=== PATIENT | male | born 1955 | race African-American/Black ===

== ENCOUNTER 2022-10-29 06:44 | Emergency (ER) | payer OTHER ==
[2022-10-29 07:01] VITALS: BP 136/79; PULSE 102; RESP 18; TEMP 98.8; BMI 33.4
[2022-10-29] MEDS ORDERED: ACETAMINOPHEN 1000 MG/100 ML BAG IVPB ONE (08:11)
[2022-10-29] MEDS ORDERED: morphine CARPU-JECT 2 MG/1 ML DISP.SYRIN IVPUSH ONE (08:28)
[2022-10-29] MEDS ORDERED: ACETAMINOPHEN INJECTION 100 ML IVPB ONE (09:01)
[2022-10-29 09:52] LABS: EPI CELLS 6 /uL (0-25.1); HYALINE CASTS 2 /uL (0-3.1); URINE APPEARANCE CLEAR; URINE BACTERIA 6 /uL (0-1359); URINE BILIRUBIN NEGATIVE (NEGATIVE); URINE COLOR YELLOW; URINE GLUCOSE (UA) 1+ (NEGATIVE); URINE KETONE TRACE (NEGATIVE); URINE LEUK ESTERASE NEGATIVE (NEGATIVE); URINE NITRITE NEGATIVE (NEGATIVE); URINE PROTEIN 1+ (NEGATIVE); URINE RBC 13 /uL (0-23.9); URINE UROBILINOGEN 0.2 mg/dL (0.2-1.0); URINE WBC 10 /uL (0-25.8)
[2022-10-29 10:20] LABS: HEMATOCRIT 43.4 % (35.4-49); HEMOGLOBIN 14.4 GM/dL (11.7-16.9); MCH 30.4 pg (25.7-33.7); MCHC 33.2 g/dl (32.0-35.9); MEAN CELL VOLUME 91.5 fl (80-96); MEAN PLT VOLUME 7.8 fl (7.5-11.1); PLATELET COUNT 367 10^3/uL (134-434); RBC 4.74 M/mm3 (4.00-5.60); RDW 13.6 % (11.9-15.9); WHITE BLOOD COUNT 24.3 K/mm3 (4.0-10.0)
[2022-10-29] MEDS ORDERED: SODIUM CHLORIDE 0.9% 500 ML INFUS.BAG IV ONE (10:32)
[2022-10-29 10:42] LABS: CALCIUM 9.4 mg/dL (8.5-10.1)
[2022-10-29 10:43] LABS: ALBUMIN 4.1 g/dl (3.4-5.0); BLOOD UREA NITROGEN 12.9 mg/dL (7-18)
[2022-10-29 10:46] LABS: CREATININE 1.3 mg/dL (0.55-1.3)
[2022-10-29 10:47] LABS: BILIRUBIN,TOTAL 0.8 mg/dL (0.2-1); TOT PROT 7.9 g/dl (6.4-8.2)
[2022-10-29 11:00] LABS: ANISOCYTOSIS 0; HELMET CELLS 0; HOWELL-JOLLY BODIES 0; MACROCYTOSIS 0; OVALOCYTE 0; ROULEAU 0; SICKELED CELLS 0; TARGET CELLS 0; TEAR DROP CELLS 0; TOXIC GRANULATION 0
== END 2022-10-29 13:32 | disposition home or self-care (01) ==
LOC: JER 06:44
PROC: 3E033GC Introduction of Other Therapeutic Substance into Peripheral Vein, Percutaneous Approach (ICD-10-PCS; principal; 2022-10-29)
DX: U07.1 COVID-19 (principal); N20.0 Calculus of kidney
CPT/HCPCS: 0241U-QW; 36415; 74176-TC; 80053; 81003; 85025; 87086; 96374; 96375; 99285-25

== ENCOUNTER 2023-06-23 15:41 | Inpatient (IN) | payer OTHER ==
[2023-06-23] MEDS ORDERED: LACTATED RINGERS SOLUTION 1000 ML INFUS.BAG IV ONE (18:41)
[2023-06-23 20:13] LABS: BASO % 0.8 % (0-2.0); EOS % 1.3 % (0-4.5); HEMATOCRIT 36.6 % (35.4-49); HEMOGLOBIN 12.1 GM/dL (11.7-16.9); LYMPH % 71.7 % (8-40); MCH 30.8 pg (25.7-33.7); MCHC 33.2 g/dl (32.0-35.9); MEAN CELL VOLUME 92.8 fl (80-96); MEAN PLT VOLUME 8.7 fl (7.5-11.1); MONO % 1.7 % (3.8-10.2); NEUT % 24.5 % (42.8-82.8); PLATELET COUNT 388 10^3/uL (134-434); RBC 3.94 M/mm3 (4.00-5.60); RDW 13.5 % (11.9-15.9); WHITE BLOOD COUNT 25.4 K/mm3 (4.0-10.0)
[2023-06-23 20:17] LABS: INR 0.97 (0.83-1.09); PROTHROMBIN TIME (PATIENT) 11.2 SEC (9.7-13.0)
[2023-06-23 20:20] LABS: ACTIVATED PTT 28.8 SECONDS (25.2-36.5)
[2023-06-23 20:31] LABS: POTASSIUM 4.7 mmol/L (3.5-5.1)
[2023-06-23 20:33] LABS: ALBUMIN 3.7 g/dl (3.4-5.0)
[2023-06-23 20:34] LABS: BLOOD UREA NITROGEN 19.3 mg/dL (7-18)
[2023-06-23 20:36] LABS: CREATININE 1.3 mg/dL (0.55-1.3)
[2023-06-23 20:38] LABS: BILIRUBIN,TOTAL 0.5 mg/dL (0.2-1); TOT PROT 7.6 g/dl (6.4-8.2)
[2023-06-23 20:48] LABS: CALCIUM 8.9 mg/dL (8.5-10.1)
[2023-06-23] MEDS ORDERED: LIDOCAINE HCL 2% (50ML VIAL) SQ ONE (20:59)
[2023-06-23] MEDS ORDERED: LIDOCAINE HCL 2% (20ML MULTI-DOSE VIAL) ONE (21:05)
[2023-06-23 22:43] LABS: BF WBC & OTHER NUCLEATED CELLS 3832 /mm3
[2023-06-23 23:24] LABS: CRYSTALS,SYNOVIAL FLUID NEGATIVE
[2023-06-23 23:37] LABS: BODY FLUID MACROPHAGES 1 %
[2023-06-24] MEDS ORDERED: ACETAMINOPHEN 1000 MG/100 ML BAG IVPB PRN (03:24)
[2023-06-24] MEDS ORDERED: ENOXAPARIN NA (PORCINE) 40 MG/0.4 ML DISP.SYRIN SQ SCH (06:00)
[2023-06-24 06:10] VITALS: BMI 33.0
[2023-06-24] MEDS: PANTOPRAZOLE 40 MG TABLET PO SCH (06:28)
[2023-06-24] MEDS: oxyCODONE HCL 5 MG TABLET PO PRN ×2 (06:29→16:52)
[2023-06-24] MEDS: INSULIN SLIDING SCALE (NOVOLOG) 1 VIAL SQ SCH ×2 (06:34→17:25)
[2023-06-24] MEDS ORDERED: INSULIN SLIDING SCALE (NOVOLOG) 1 VIAL SQ SCH (07:00)
[2023-06-24] MEDS ORDERED: LACTATED RINGERS SOLUTION 1000 ML INFUS.BAG IV PRN (08:17)
[2023-06-24] MEDS ORDERED: LIDOCAINE HCL 2% (20ML MULTI-DOSE VIAL) INF SCH (08:30)
[2023-06-24 09:33] LABS: HEMATOCRIT 35.9 % (35.4-49); HEMOGLOBIN 11.8 GM/dL (11.7-16.9); MCHC 32.8 g/dl (32.0-35.9); MEAN CELL VOLUME 91.4 fl (80-96); MEAN PLT VOLUME 8.5 fl (7.5-11.1); PLATELET COUNT 374 10^3/uL (134-434); RBC 3.93 M/mm3 (4.00-5.60); RDW 13.6 % (11.9-15.9); WHITE BLOOD COUNT 22.8 K/mm3 (4.0-10.0)
[2023-06-24] MEDS: ALLOPURINOL 100 MG TABLET (FP) PO SCH (09:39)
[2023-06-24] MEDS: TAMSULOSIN HCL 0.4 MG CAP PO SCH (09:39)
[2023-06-24] MEDS: ISOSORBIDE MONONITRATE 30 MG TAB.SR.24H (FP) PO SCH (09:39)
[2023-06-24] MEDS: METOPROLOL TARTRATE 50 MG TABLET (FP) PO SCH ×2 (09:39→21:34)
[2023-06-24 09:50] LABS: POTASSIUM 4.4 mmol/L (3.5-5.1)
[2023-06-24 10:02] LABS: ALBUMIN 3.4 g/dl (3.4-5.0); BLOOD UREA NITROGEN 15.4 mg/dL (7-18); CALCIUM 8.9 mg/dL (8.5-10.1)
[2023-06-24] MEDS ORDERED: INSULIN (NOVOLOG) ASPART 100 UNITS/ML 10ML VIAL ONE ×2 (11:06→17:04)
[2023-06-24] MEDS: CEFAZOLIN 1 GM in DEXTROSE 5%-WATER - 50 ML IVPB SCH ×2 (11:15→17:25)
[2023-06-24 11:36] LABS: ANISOCYTOSIS 0; HELMET CELLS 0; HOWELL-JOLLY BODIES 0; MACROCYTOSIS 0; OVALOCYTE 0; ROULEAU 0; SICKELED CELLS 0; TARGET CELLS 0; TEAR DROP CELLS 0; TOXIC GRANULATION 0
[2023-06-24] MEDS: FLUTICASONE PROP 0.05% 16 GM NASAL SPRAY NS SCH ×2 (11:36→21:34)
[2023-06-24] MEDS: LIDOCAINE 5% TOPICAL PATCH TP SCH (12:29)
[2023-06-24] MEDS: ATORVASTATIN CA 80 MG TABLET (FP) PO SCH (21:34)
[2023-06-24] MEDS: LIDOCAINE PATCH REMOVAL MC SCH (21:34)
[2023-06-25] MEDS: CEFAZOLIN 1 GM in DEXTROSE 5%-WATER - 50 ML IVPB SCH ×6 (01:45→18:19)
[2023-06-25] MEDS ORDERED: INSULIN (NOVOLOG) ASPART 100 UNITS/ML 10ML VIAL ONE (06:35)
[2023-06-25] MEDS: INSULIN SLIDING SCALE (NOVOLOG) 1 VIAL SQ SCH ×2 (06:36→16:41)
[2023-06-25] MEDS: PANTOPRAZOLE 40 MG TABLET PO SCH (06:37)
[2023-06-25] MEDS: ISOSORBIDE MONONITRATE 30 MG TAB.SR.24H (FP) PO SCH (09:08)
[2023-06-25] MEDS: TAMSULOSIN HCL 0.4 MG CAP PO SCH (09:08)
[2023-06-25] MEDS: METOPROLOL TARTRATE 50 MG TABLET (FP) PO SCH ×2 (09:08→22:35)
[2023-06-25] MEDS: LIDOCAINE 5% TOPICAL PATCH TP SCH (09:09)
[2023-06-25] MEDS: ALLOPURINOL 100 MG TABLET (FP) PO SCH (09:09)
[2023-06-25] MEDS: ENOXAPARIN NA (PORCINE) 40 MG/0.4 ML DISP.SYRIN SQ SCH (09:09)
[2023-06-25] MEDS: FLUTICASONE PROP 0.05% 16 GM NASAL SPRAY NS SCH ×2 (09:10→22:36)
[2023-06-25] MEDS: IBUPROFEN 200 MG TABLET PO SCH ×3 (09:26→17:15)
[2023-06-25 10:05] LABS: HEMATOCRIT 36.7 % (35.4-49); HEMOGLOBIN 11.9 GM/dL (11.7-16.9); MCH 30.1 pg (25.7-33.7); MCHC 32.3 g/dl (32.0-35.9); MEAN PLT VOLUME 8.7 fl (7.5-11.1); PLATELET COUNT 386 10^3/uL (134-434); RBC 3.95 M/mm3 (4.00-5.60); RDW 13.2 % (11.9-15.9)
[2023-06-25 10:10] LABS: POTASSIUM 4.2 mmol/L (3.5-5.1)
[2023-06-25 10:13] LABS: CALCIUM 8.9 mg/dL (8.5-10.1)
[2023-06-25 10:14] LABS: ALBUMIN 3.5 g/dl (3.4-5.0); BLOOD UREA NITROGEN 16.8 mg/dL (7-18)
[2023-06-25 10:17] LABS: CREATININE 1.1 mg/dL (0.55-1.3)
[2023-06-25 10:19] LABS: BILIRUBIN,TOTAL 0.7 mg/dL (0.2-1); TOT PROT 7.1 g/dl (6.4-8.2)
[2023-06-25 11:19] LABS: ANISOCYTOSIS 1+; MACROCYTOSIS 0
[2023-06-25] MEDS ORDERED: INSULIN (LEVEMIR) 100 UNITS/ML UNITS SQ SCH (22:00)
[2023-06-25 22:27] VITALS: RESP 18
[2023-06-25] MEDS: ATORVASTATIN CA 80 MG TABLET (FP) PO SCH (22:35)
[2023-06-25] MEDS: DOCUSATE SODIUM 100 MG CAPSULE (FP) PO SCH (22:36)
[2023-06-25] MEDS: POLYETHYLENE GLYCOL (HEALTHYLAX) 3350 17 GM PACKET PO SCH (22:36)
[2023-06-25] MEDS: LIDOCAINE PATCH REMOVAL MC SCH (22:37)
[2023-06-26] MEDS: IBUPROFEN 200 MG TABLET PO SCH ×3 (01:11→11:48)
[2023-06-26] MEDS: CEFAZOLIN 1 GM in DEXTROSE 5%-WATER - 50 ML IVPB SCH ×2 (03:11→09:53)
[2023-06-26] MEDS: PANTOPRAZOLE 40 MG TABLET PO SCH (07:04)
[2023-06-26] MEDS: INSULIN SLIDING SCALE (NOVOLOG) 1 VIAL SQ SCH (07:06)
[2023-06-26 09:43] LABS: HEMATOCRIT 39.4 % (35.4-49); HEMOGLOBIN 12.8 GM/dL (11.7-16.9); MCH 30.4 pg (25.7-33.7); MCHC 32.5 g/dl (32.0-35.9); MEAN CELL VOLUME 93.5 fl (80-96); MEAN PLT VOLUME 8.6 fl (7.5-11.1); PLATELET COUNT 378 10^3/uL (134-434); RBC 4.21 M/mm3 (4.00-5.60); RDW 13.5 % (11.9-15.9); WHITE BLOOD COUNT 22.9 K/mm3 (4.0-10.0)
[2023-06-26] MEDS: POLYETHYLENE GLYCOL (HEALTHYLAX) 3350 17 GM PACKET PO SCH (09:51)
[2023-06-26] MEDS: ENOXAPARIN NA (PORCINE) 40 MG/0.4 ML DISP.SYRIN SQ SCH (09:51)
[2023-06-26] MEDS: LIDOCAINE 5% TOPICAL PATCH TP SCH (09:51)
[2023-06-26] MEDS: METOPROLOL TARTRATE 50 MG TABLET (FP) PO SCH (09:52)
[2023-06-26] MEDS: ISOSORBIDE MONONITRATE 30 MG TAB.SR.24H (FP) PO SCH (09:52)
[2023-06-26] MEDS: DOCUSATE SODIUM 100 MG CAPSULE (FP) PO SCH (09:52)
[2023-06-26] MEDS: TAMSULOSIN HCL 0.4 MG CAP PO SCH (09:53)
[2023-06-26] MEDS: ALLOPURINOL 100 MG TABLET (FP) PO SCH (09:53)
[2023-06-26] MEDS: FLUTICASONE PROP 0.05% 16 GM NASAL SPRAY NS SCH (09:54)
[2023-06-26 10:03] LABS: POTASSIUM 4.4 mmol/L (3.5-5.1)
[2023-06-26 10:07] LABS: ALBUMIN 3.8 g/dl (3.4-5.0); BLOOD UREA NITROGEN 19.6 mg/dL (7-18); CALCIUM 9.4 mg/dL (8.5-10.1); MAGNESIUM 2.2 mg/dL (1.8-2.4)
[2023-06-26 10:10] LABS: CREATININE 1.2 mg/dL (0.55-1.3)
[2023-06-26 10:12] LABS: BILIRUBIN,TOTAL 0.8 mg/dL (0.2-1); TOT PROT 7.8 g/dl (6.4-8.2)
[2023-06-26 10:42] LABS: ANISOCYTOSIS 0; HELMET CELLS 0; HOWELL-JOLLY BODIES 0; MACROCYTOSIS 0; OVALOCYTE 0; ROULEAU 0; SICKELED CELLS 0; TARGET CELLS 0; TEAR DROP CELLS 0; TOXIC GRANULATION 0
[2023-06-26] MEDS ORDERED: AMOX TR/POT CLAV 875MG/125MG TABLETS (FP) PO SCH (10:45)
[2023-06-26 15:19] VITALS: BP 120/54; PULSE 76; TEMP 98.3
== END 2023-06-26 03:30 | disposition home or self-care (01) | DRG 553 ==
LOC: JER 15:41 → JERBED 06-24 02:32 → OBSVTOIN 06-24 04:06 → J8W 06-24 05:12
PROVIDERS: ADMIT Internal Medicine; ATTEND Nurse Practitioner Family
DX: M10.462 Other secondary gout, left knee (principal); U07.1 COVID-19; C91.10 Chronic lymphocytic leukemia of B-cell type not having achieved remission; E11.9 Type 2 diabetes mellitus without complications; I10 Essential (primary) hypertension; E78.5 Hyperlipidemia, unspecified; N40.0 Benign prostatic hyperplasia without lower urinary tract symptoms; E66.9 Obesity, unspecified; Z68.33 Body mass index [BMI] 33.0-33.9, adult
CPT/HCPCS: 0241U-QW; 36415; 73552-TC-RT-FY; 73564-TC-RT-FY; 80053; 82962; 83036; 83735; 84550; 84560; 85025; 85610; 85730; 87040; 87070; 87075; 87205; 87491; 87591; 89060; 93005; 93010; 93971-TC; 99285-25; G0378